=== PATIENT | female | born 1960 | race Caucasian/White ===

== ENCOUNTER 2023-08-31 01:08 | Inpatient (IN) | payer OTHER ==
[2023-08-31] MEDS ORDERED: Albuterol 2.5 MG (3 mL) NEB ONE (01:20)
[2023-08-31] MEDS ORDERED: Albuterol 2.5 MG (0.5 mL) NEB ONE (01:20)
[2023-08-31] MEDS ORDERED: EPINEPHrine 1 MG/ML VIAL ONE (01:25)
[2023-08-31] MEDS ORDERED: DOPamine/D5W 400 mg/250 ml PREMIX ONE (01:27)
[2023-08-31] MEDS ORDERED: EPINEPHrine 1 MG/ML AMP ONE (01:27)
[2023-08-31] MEDS ORDERED: NOREPINEPHRINE 8 MG/250 ML-D5W 250 ML ONE ×2 (01:32→05:55)
[2023-08-31] MEDS ORDERED: Magnesium 2 GM/50 ML BAG (IN WATER) ONE (01:32)
[2023-08-31] MEDS ORDERED: Hydrocortisone Sod Succ/PF 100 mg/2 ml Vial ONE (01:32)
[2023-08-31 01:45] LABS: Hematocrit 44.8 % (36.0-47.0); Hemoglobin 13.9 g/dL (12.0-16.0); Manual Diff?? YES; Mean Corpuscular Volume 96.6 fl (78.0-98.0); Mean Platelet Volume 10.1 fL (7.4-10.4); Platelet Count 290 10x3/uL (130-400); RBC Distribution Width 14.8 % (11.5-14.5); Red Blood Cell (RBC) Count 4.64 mill/uL (4.20-5.40); White Blood Cell (WBC) Count 37.9 10x3/uL (4.8-10.8)
[2023-08-31 01:47] LABS: Actual Bicarbonate (HCO3a) 18.9 mEq/L (22-28); Analyzer IN Cardio ER; Base Excess (BEa) -11.9 mEq/L (-2.0 to +3.0); Carboxyhemoglobin (COHb) 1.8 gm% (0.0-3.0); Hematocrit-ABG 42 % (36.0-47.0); Hemoglobin (Hb) 14.2 g/dL (12.0-16.0)
[2023-08-31 01:47] LABS: Delete Auto Diff?? YES
[2023-08-31] MEDS ORDERED: Sodium Chloride 0.9% 100 ML ONE (01:57)
[2023-08-31] MEDS ORDERED: Cefepime 2 GM VIAL ONE (01:57)
[2023-08-31 02:05] LABS: Band 16 % (5-11); CellaVision Operator ID LAB.CLH1; Lymphocytes 14 % (21-51); Monocytes 6 % (0-10); Neutrophil 64 % (42-75); Platelet Adequacy Comment Platelets Normal; Polychromasia SLIGHT = 2-3 cells HPF (0-2); Reactive Lymphocytes 1 % (0-10); Total Cell Count 102
[2023-08-31 02:19] LABS: CO2 Tension 65.1 mmHg (35.0-45.0); O2 Tension (PaO2), arterial 51.9 mmHg (> 80.0)
[2023-08-31 02:20] LABS: ALV-art Gradient 579.725 mmHg (0-20); Puncture Site LRA
[2023-08-31 02:33] LABS: Critical Call Chem Troponin I NUR.NKE@0233
[2023-08-31 03:06] LABS: Acetaminophen Less than 10 mcg/mL (10.0-30.0); Alcohol Less than 10.0 mg/dL (Less than 10); Salicylate Less than 8.0 mg/dL (15.0-30.0)
[2023-08-31 03:16] LABS: Albumin 3.6 g/dL (3.4-4.8)
[2023-08-31 03:18] LABS: Bilirubin Negative (Negative); Blood, Urine 1+ (Negative); CAUTI Indications for Culture Alt mental st,lethar; Clarity Turbid (Clear); Glucose, Urine (Dipstick) 500 mg/dL (Negative); Ketone, Urine Negative (Negative); Leukocyte Negative Leu/uL (Negative); Nitrite Negative (Negative); Protein, Urine (Dipstick) 300 mg/dL (Neg-Trace); Specific Gravity, Urine 1.017 (1.002-1.036); Squamous Epithelial 0-3 HPF (0-3); Urobilinogen Normal mg/dL (Less than 2)
[2023-08-31 03:18] LABS: Calcium 8.1 mg/dL (7.8-10.44); Chloride 110 mmol/L (98-107); Potassium 3.4 mmol/L (3.5-5.1); Sodium 140 mmol/L (136-145)
[2023-08-31 03:19] LABS: Globulin 2.6 g/dL (2.4-3.5); Glucose 347 mg/dL (80-115); Protein, Total 6.2 g/dL (5.8-8.1)
[2023-08-31 03:20] LABS: Anion Gap 13 mmol/L (10-20); Carbon Dioxide 20 mmol/L (23-31)
[2023-08-31 03:20] LABS: Bacteria/HPF 1+ HPF (None Seen)
[2023-08-31 03:21] LABS: Urine Culture Reflex Yes Yes
[2023-08-31 03:21] LABS: Bilirubin, Total 0.2 mg/dL (0.2-1.2)
[2023-08-31 03:22] LABS: Alkaline Phosphatase 93 U/L (40-110); Calc. Creatinine Clearance 0 mL/min (70-130); Estimated GFR 51
[2023-08-31 03:23] LABS: BUN (Urea Nitrogen) 17 mg/dL (9.8-20.1)
[2023-08-31 03:24] LABS: Amphetamine Not Detected (NotDetected); Barbiturates Screen Not Detected (NotDetected); Benzodiazepine Screen Not Detected (NotDetected); Cocaine Metabolite Screen Not Detected (NotDetected); Methadone Not Detected (NotDetected); Methamphetamine Not Detected (NotDetected); Opiate Screen Not Detected (NotDetected); Oxycodone Screen Not Detected (NotDetected); Phencyclidine (PCP) Not Detected (NotDetected); THC/Cannabinoid Screen Not Detected (NotDetected); Tricyclic Screen Not Detected (NotDetected)
[2023-08-31 03:24] LABS: AST (SGOT) 38 U/L (5-34)
[2023-08-31 03:25] LABS: ALT (SGPT) 18 U/L (8-55)
[2023-08-31] MEDS ORDERED: Rocuronium Bromide 10 MG/ML (10ML VIAL) ONE (03:40)
[2023-08-31 03:49] LABS: Actual Bicarbonate (HCO3a) 18.5 mEq/L (22-28); Analyzer IN Cardio ER; Base Excess (BEa) -9.9 mEq/L (-2.0 to +3.0); CO2 Tension 50.6 mmHg (35.0-45.0); Calcium, Ionized (arterial) 1.16 mmol/L (1.12-1.30); Carboxyhemoglobin (COHb) 1.3 gm% (0.0-3.0); Hematocrit-ABG 42 % (36.0-47.0); Hemoglobin (Hb) 14.4 g/dL (12.0-16.0); Potassium - ABG Lab 3.12 mmol/L (3.70-5.30)
[2023-08-31 03:55] LABS: O2 Tension (PaO2), arterial 54.7 mmHg (> 80.0); Puncture Site LRA; pH, Arterial 7.182 (7.35-7.45)
[2023-08-31] MEDS ORDERED: Ondansetron PF 4 MG/2 ML Vial ONE (04:03)
[2023-08-31] MEDS ORDERED: chlorproMAZINE HCl 50 MG/2 ML AMP SLOW IVP SCH (05:00)
[2023-08-31 05:06] LABS: SARS-CoV-2 NAA Rapid Test Not Detected (NotDetected)
[2023-08-31] MEDS ORDERED: Electrolyte Replacement Protocol 1 EACH IVPB PRN (05:08)
[2023-08-31] MEDS ORDERED: Acetaminophen 650 MG Suppository PR PRN (05:08)
[2023-08-31] MEDS ORDERED: Ipratropium/Albuterol 3 ML NEB NEB PRN (05:08)
[2023-08-31] MEDS ORDERED: Acetaminophen 325 MG (10.15 ML) UDCUP PO PRN (05:08)
[2023-08-31 05:11] LABS: Lactic Acid 2.8 mmol/L (0.5-2.2)
[2023-08-31] MEDS ORDERED: Ventilator Sedation Protocol 1 EACH FS SCH (05:15)
[2023-08-31] MEDS ORDERED: Propofol 1,000 MG/100 ML VIAL IV PRN (05:30)
[2023-08-31] MEDS ORDERED: Lorazepam 2 MG/ML VIAL SLOW IVP PRN (05:30)
[2023-08-31] MEDS ORDERED: Fentanyl BOLUS 250 ML IVPB PRN (05:30)
[2023-08-31] MEDS ORDERED: Propofol BOLUS 1,000 MG/100 ML VIAL IV PRN (05:30)
[2023-08-31] MEDS ORDERED: DISCONTINUE PREVIOUS NARCOTIC PAIN MEDICATIONS AND BENZODIAZEPINES FS SCH (05:30)
[2023-08-31] MEDS ORDERED: Vancomycin 1 GM/200 ML (FROZEN) BAG ONE (05:46)
[2023-08-31 06:26] LABS: Hemoglobin A1c 5.4 % (4.0-6.0)
[2023-08-31 06:27] LABS: Critical Call Chem Troponin I NUR.NKE @0626; Troponin I 5.234 ng/mL (< 0.028)
[2023-08-31 06:57] LABS: Actual Bicarbonate (HCO3a) 17.3 mEq/L (22-28); Base Excess (BEa) -11.4 mEq/L (-2.0 to +3.0); CO2 Tension 50.2 mmHg (35.0-45.0); Calcium, Ionized (arterial) 1.16 mmol/L (1.12-1.30); Carboxyhemoglobin (COHb) 0.7 gm% (0.0-3.0); Hematocrit-ABG 41 % (36.0-47.0); Hemoglobin (Hb) 13.9 g/dL (12.0-16.0); Potassium - ABG Lab 3.08 mmol/L (3.70-5.30)
[2023-08-31 07:02] LABS: O2 Tension (PaO2), arterial 56.8 mmHg (> 80.0); Puncture Site RRA; pH, Arterial 7.156 (7.35-7.45)
[2023-08-31] MEDS: Lactated Ringer's 1,000 ML IV SCH ×2 (08:55→08:57)
[2023-08-31] MEDS: Albumin 25% 25 GM (100 mL) BOT IVPB SCH (08:55)
[2023-08-31] MEDS: Sodium Chloride 0.9% 1,000 ML IV SCH (08:56)
[2023-08-31] MEDS: Promethazine HCl 12.5 MG in Sodium Chloride 0.9% 50 ML IVPB SCH (08:56)
[2023-08-31] MEDS: Famotidine/PF 20 mg/2ml Vial SLOW IVP SCH (09:16)
[2023-08-31] MEDS: Potassium Chloride 20 MEQ in Premix 1 BAG IVPB SCH (09:19)
[2023-08-31] MEDS: NOREPINEPHRINE 8 MG/250 ML-D5W 250 ML IVPB PRN (09:19)
[2023-08-31] MEDS ORDERED: DOBUTamine 500 mg/250 ml 250 ML IVPB SCH (09:30)
[2023-08-31] MEDS: Vancomycin 1.5 GM in Sodium Chloride 0.9% 250 ML 300 ML IVPB SCH (10:46)
[2023-08-31 11:05] LABS: Troponin I 9.345 ng/mL (< 0.028)
[2023-08-31] MEDS: Vancomycin 250 MG, Admixture Fee 1 EACH in Sodium Chloride 0.9% 100 ML IVPB SCH (11:07)
[2023-08-31] MEDS: DOBUTamine 500 mg/250 ml 500 MG in Premix 1 BAG IVPB SCH (11:11)
[2023-08-31] MEDS: DOPamine 400 MG/D5W 250 ML 250 ML ONE (11:12)
[2023-08-31] MEDS: FLU VACC QS2023-24(6MOS UP)/PF 60 MCG/0.5 ML SYRINGE IM ONE (11:12)
[2023-08-31] MEDS: Fentanyl CADD 100 ML IV SCH (13:57)
[2023-08-31] MEDS ORDERED: Cefepime 2 GM in Sodium Chloride 0.9% 100 ML IVPB SCH (14:00)
[2023-08-31] MEDS: Cefepime 1 GM in Sodium Chloride 0.9% 100 ML IVPB SCH (14:35)
[2023-08-31] MEDS: DOPamine 400 MG/D5W 250 ML 250 ML IVPB SCH (16:39)
[2023-08-31] MEDS: Hydrocortisone Sod Succ/PF 100 mg/2 ml Vial IVP SCH (19:44)
[2023-08-31] MEDS: Vasopressin 20 UNITS, Admixture Fee 1 EACH in Sodium Chloride 0.9% 50 ML IV SCH (21:51)
[2023-09-01] MEDS: Vancomycin HCl 750 MG in Sodium Chloride 0.9% 250 ML 250 ML IVPB SCH (00:50)
[2023-09-01 04:36] LABS: #Monocytes 1.4 thou/uL (0.11-0.59); #Neutrophils 14.3 thou/uL (1.40-6.50); %Basophils 0.1 % (0.0-1.0); %Eosinophils 0.1 % (0.0-10.0); %Lymphocytes 8.3 % (21.0-51.0); %Monocytes 8.1 % (0.0-10.0); %Neutrophils 82.9 % (42.0-75.0); Mean Corpuscular HGB CONC 33.2 g/dL (32.0-36.0); Mean Corpuscular Hemoglobin 30.2 pg (27.0-31.0); Mean Platelet Volume 10.1 fL (7.4-10.4); Platelet Count 154 10x3/uL (130-400); RBC Distribution Width 14.3 % (11.5-14.5); Red Blood Cell (RBC) Count 3.11 mill/uL (4.20-5.40); White Blood Cell (WBC) Count 17.2 10x3/uL (4.8-10.8)
[2023-09-01 04:50] LABS: Hematocrit 28.3 % (36.0-47.0); Hemoglobin 9.4 g/dL (12.0-16.0)
[2023-09-01 04:58] LABS: ALT (SGPT) 58 U/L (8-55); AST (SGOT) 72 U/L (5-34); Albumin 3.7 g/dL (3.4-4.8); Alkaline Phosphatase 75 U/L (40-110); Anion Gap 13 mmol/L (10-20); BUN (Urea Nitrogen) 19 mg/dL (9.8-20.1); Bilirubin, Total 0.6 mg/dL (0.2-1.2); Calc. Creatinine Clearance 67 mL/min (70-130); Calcium 8.3 mg/dL (7.8-10.44); Carbon Dioxide 21 mmol/L (23-31); Chloride 99 mmol/L (98-107); Estimated GFR 73; Globulin 2.4 g/dL (2.4-3.5); Glucose 252 mg/dL (80-115); Potassium 4.5 mmol/L (3.5-5.1); Protein, Total 6.1 g/dL (5.8-8.1); Sodium 128 mmol/L (136-145)
[2023-09-01] MEDS: Furosemide 40 MG (4 mL) VIAL SLOW IVP SCH (07:42)
[2023-09-01 08:08] LABS: Actual Bicarbonate (HCO3a) 19.9 mEq/L (22-28); Base Excess (BEa) -4.5 mEq/L (-2.0 to +3.0); CO2 Tension 34.2 mmHg (35.0-45.0); Calcium, Ionized (arterial) 1.09 mmol/L (1.12-1.30); Carboxyhemoglobin (COHb) 0.4 gm% (0.0-3.0); Hematocrit-ABG 31 % (36.0-47.0); Hemoglobin (Hb) 10.7 g/dL (12.0-16.0); O2 Tension (PaO2), arterial 131.6 mmHg (> 80.0); Potassium - ABG Lab 4.48 mmol/L (3.70-5.30); pH, Arterial 7.383 (7.35-7.45)
[2023-09-01 08:10] LABS: Puncture Site LFA
[2023-09-01 08:17] VITALS: BMI 23.6
[2023-09-01] MEDS ORDERED: Iopamidol-370 76% 500 ML MDV (1 ML CHARGE) ONE (13:50)
[2023-09-01 19:21] LABS: Anion Gap 13 mmol/L (10-20); BUN (Urea Nitrogen) 22 mg/dL (9.8-20.1); Calc. Creatinine Clearance 76 mL/min (70-130); Calcium 8.2 mg/dL (7.8-10.44); Carbon Dioxide 20 mmol/L (23-31); Chloride 96 mmol/L (98-107); Estimated GFR 80; Glucose 167 mg/dL (80-115); Potassium 3.9 mmol/L (3.5-5.1); Sodium 125 mmol/L (136-145)
[2023-09-02 01:06] LABS: Vancomycin, Trough 4.9 ug/mL
[2023-09-02] MEDS: Vancomycin HCl 500 MG in Sodium Chloride 0.9% 100 ML IVPB SCH (02:45)
[2023-09-02 04:27] LABS: #Monocytes 1.8 thou/uL (0.11-0.59); #Neutrophils 12.9 thou/uL (1.40-6.50); %Basophils 0.1 % (0.0-1.0); %Lymphocytes 8.7 % (21.0-51.0); %Monocytes 10.8 % (0.0-10.0); Hematocrit 26.8 % (36.0-47.0); Hemoglobin 8.9 g/dL (12.0-16.0); Mean Corpuscular HGB CONC 33.2 g/dL (32.0-36.0); Mean Corpuscular Hemoglobin 30.2 pg (27.0-31.0); Mean Corpuscular Volume 90.8 fl (78.0-98.0); Mean Platelet Volume 10.4 fL (7.4-10.4); Platelet Count 163 10x3/uL (130-400); RBC Distribution Width 14.7 % (11.5-14.5); Red Blood Cell (RBC) Count 2.95 mill/uL (4.20-5.40); White Blood Cell (WBC) Count 16.2 10x3/uL (4.8-10.8)
[2023-09-02 04:52] LABS: ALT (SGPT) 45 U/L (8-55); AST (SGOT) 53 U/L (5-34); Albumin 3.5 g/dL (3.4-4.8); Alkaline Phosphatase 60 U/L (40-110); Anion Gap 11 mmol/L (10-20); BUN (Urea Nitrogen) 27 mg/dL (9.8-20.1); Bilirubin, Total 0.6 mg/dL (0.2-1.2); Calc. Creatinine Clearance 62 mL/min (70-130); Calcium 7.9 mg/dL (7.8-10.44); Carbon Dioxide 25 mmol/L (23-31); Chloride 93 mmol/L (98-107); Estimated GFR 63; Globulin 2.4 g/dL (2.4-3.5); Glucose 149 mg/dL (80-115); Potassium 4.2 mmol/L (3.5-5.1); Protein, Total 5.9 g/dL (5.8-8.1); Sodium 125 mmol/L (136-145)
[2023-09-02] MEDS: Sodium Chloride 0.9% 500 ML IV SCH (09:25)
[2023-09-02] MEDS: Morphine 2 MG/ML VIAL SLOW IVP PRN (09:31)
[2023-09-02] MEDS: Sodium Chloride 0.9% 1,000 ML IV SCH (09:31)
[2023-09-02 09:50] VITALS: TEMP 99.2
[2023-09-02 10:44] VITALS: BP 76/58
[2023-09-02] MEDS: DC Sedation Protocol FS ONE (11:52)
[2023-09-02] MEDS: Lorazepam 2 MG/ML VIAL SLOW IVP SCH (12:00)
[2023-09-02] MEDS: Morphine 4 MG/ML VIAL SLOW IVP PRN (12:00)
[2023-09-02] MEDS ORDERED: Vancomycin (BATCH) 1.25 GM in Premix 1 BAG IVPB SCH (13:00)
== END 2023-09-02 12:10 | disposition expired | DRG 64 ==
LOC: ERS 01:08 → CCU 06:56
PROVIDERS: ADMIT Student in an Organized Health Care Education/Training Program; ATTEND Emergency Medicine
PROC: 5A1945Z Respiratory Ventilation, 24-96 Consecutive Hours (ICD-10-PCS; principal; 2023-08-31)
PROC: 4A133R1 Monitoring of Arterial Saturation, Peripheral, Percutaneous Approach (ICD-10-PCS; 2023-08-31)
PROC: 3E033XZ Introduction of Vasopressor into Peripheral Vein, Percutaneous Approach (ICD-10-PCS; 2023-08-31)
PROC: 30233J1 Transfusion of Nonautologous Serum Albumin into Peripheral Vein, Percutaneous Approach (ICD-10-PCS; 2023-08-31)
PROC: 06HY33Z Insertion of Infusion Device into Lower Vein, Percutaneous Approach (ICD-10-PCS; 2023-08-31)
PROC: 0D9670Z Drainage of Stomach with Drainage Device, Via Natural or Artificial Opening (ICD-10-PCS; 2023-08-31)
DX: I62.9 Nontraumatic intracranial hemorrhage, unspecified (principal); G93.41 Metabolic encephalopathy; G93.6 Cerebral edema; I21.4 Non-ST elevation (NSTEMI) myocardial infarction; J96.01 Acute respiratory failure with hypoxia; E87.20 Acidosis, unspecified; I42.9 Cardiomyopathy, unspecified; E87.1 Hypo-osmolality and hyponatremia; I50.20 Unspecified systolic (congestive) heart failure; Z51.5 Encounter for palliative care; Z66 Do not resuscitate; F17.210 Nicotine dependence, cigarettes, uncomplicated; I95.9 Hypotension, unspecified; J44.9 Chronic obstructive pulmonary disease, unspecified; I73.9 Peripheral vascular disease, unspecified; D64.89 Other specified anemias; R57.0 Cardiogenic shock; R57.8 Other shock; Z90.49 Acquired absence of other specified parts of digestive tract; Z90.710 Acquired absence of both cervix and uterus; Z11.52 Encounter for screening for COVID-19
CPT/HCPCS: 36415; 36556; 36600; 51702; 70450; 71045; 71275; 80053; 80202; 80306; 80307; 81001; 82805; 83036; 83605; 83880; 84484; 85025; 87040; 87086; 93005; 93010; 93306; 94002; 94003; 94640; 96365; 96366; 96367; 96368; 96375; J0171; J0692; J1250; J1265; J1720; J1940; J2060; J2270; J2272; J2405; J2550; J3010; J3370; J3370-JW; J3371; J3475; J3480; J3490; J7050; J7120; J7611; P9047; Q9967; S0028